=== PATIENT | female | born 1955 | race African-American/Black ===

== ENCOUNTER 2017-12-25 03:21 | Emergency (ER) | payer MEDICAID ==
[~2017-12-25] VITALS: Ht 172.7 cm; Wt 118.0 kg
[~2017-12-25 03:21] MED LIST: KEPP500 PO; PHEN100C4 PO
[2017-12-25 07:31] LABS: BASOPHILS % 0.4 % (0.0-2.0); EOSINOPHILS % 5.6 % (0.0-5.0); HEMATOCRIT. 33.8 % (36.0-48.0); HEMOGLOBIN. 10.9 g/dL (12.0-16.0); LYMPHOCYTES % 30.6 % (20.0-50.0); MEAN CORPUSCULAR HEMOGLOBIN 28.6 pg (28.0-32.0); MEAN CORPUSCULAR VOLUME 88.3 fL (81.0-99.0); MEAN PLATELET VOLUME 9.5 fl (7.4-10.4); MONOCYTES % 7.7 % (2.0-8.0); NEUTROPHILS % 55.7 % (40.0-76.0); PLATELET 128 x1000/uL (130-400); RED BLOOD CELL COUNT 3.83 mill/uL (4.2-5.4); RED CELL DISTRIBUTION WIDTH 12.9 % (11.6-14.6)
[2017-12-25 07:37] LABS: CHLORIDE 103 mEq/L (98-107)
[2017-12-25 08:38] VITALS: BP 132/81
[2017-12-25 08:52] LABS: CLARITY URINE CLEAR (CLEAR); COLOR URINE YELLOW (YELLOW); KETONES URINE NEGATIVE (NEGATIVE); LEUKOCYTE ESTERASE URINE NEGATIVE (NEGATIVE); NITRITE URINE NEGATIVE (NEGATIVE); OCCULT BLOOD URINE NEGATIVE (NEGATIVE); PH URINE 6.5 (4.5-8.0); PROTEIN URINE NEGATIVE (NEGATIVE); SPECIFIC GRAVITY URINE 1.012 (1.005-1.030); UROBILINOGEN URINE 0.2 E.U./dL (0.2-1.0)
== END 2017-12-25 09:49 | disposition left against medical advice (07) ==
LOC: ER 03:21
DX: R42 Dizziness and giddiness (principal); I10 Essential (primary) hypertension; G40.909 Epilepsy, unspecified, not intractable, without status epilepticus; T42.0X5A Adverse effect of hydantoin derivatives, initial encounter; Y92.018 Other place in single-family (private) house as the place of occurrence of the external cause
CPT/HCPCS: 36415; 71045; 80053; 80185; 81003; 85025; 99285; Z7610

== ENCOUNTER 2018-04-04 19:57 | Emergency (ER) | payer MEDICAID, OTHER ==
[~2018-04-04] VITALS: Ht 172.7 cm; Wt 117.0 kg
[2018-04-04] MEDS ORDERED: ALBUTEROL (0.083%) 2.5MG/3ML NEB HHN ONE (21:30)
[2018-04-04 21:58] LABS: BASOPHILS % 0.5 % (0.0-2.0); EOSINOPHILS % 1.3 % (0.0-5.0); HEMATOCRIT. 34.4 % (36.0-48.0); HEMOGLOBIN. 11.1 g/dL (12.0-16.0); LYMPHOCYTES % 20.2 % (20.0-50.0); MEAN CORPUSCULAR VOLUME 87.1 fL (81.0-99.0); MEAN PLATELET VOLUME 10.8 fl (7.4-10.4); MONOCYTES % 9.4 % (2.0-8.0); NEUTROPHILS % 68.6 % (40.0-76.0); PLATELET 120 x1000/uL (130-400); RED BLOOD CELL COUNT 3.95 mill/uL (4.2-5.4); RED CELL DISTRIBUTION WIDTH 12.8 % (11.6-14.6)
[2018-04-04 22:01] LABS: CHLORIDE 107 mEq/L (98-107)
[2018-04-04] MEDS ORDERED: ONDANSETRON HCL 4MG/2ML VIAL IV ONE (22:15)
[2018-04-05 00:04] VITALS: BP 142/95
== END 2018-04-05 02:25 | disposition home or self-care (01) ==
LOC: ER 04-05 02:23
DX: R06.03 Acute respiratory distress (principal); T39.091A Poisoning by salicylates, accidental (unintentional), initial encounter; R56.9 Unspecified convulsions; Y92.89 Other specified places as the place of occurrence of the external cause; Z98.890 Other specified postprocedural states; Z79.899 Other long term (current) drug therapy
CPT/HCPCS: 36415; 71045; 80053; 85025; 93005; 94640; 96374; 99285; J2405; J7611; Z7610

== ENCOUNTER 2018-04-05 16:27 | Inpatient (IN) | payer MEDICAID, OTHER ==
[~2018-04-05] VITALS: Ht 172.7 cm; Wt 116.1 kg
[2018-04-05 19:08] LABS: BASOPHILS % 0.6 % (0.0-2.0); EOSINOPHILS % 1.6 % (0.0-5.0); HEMATOCRIT. 35.6 % (36.0-48.0); HEMOGLOBIN. 11.4 g/dL (12.0-16.0); LYMPHOCYTES % 20.2 % (20.0-50.0); MEAN CORPUSCULAR HEMOGLOBIN 27.8 pg (28.0-32.0); MEAN CORPUSCULAR VOLUME 86.8 fL (81.0-99.0); MEAN PLATELET VOLUME 10.4 fl (7.4-10.4); MONOCYTES % 9.3 % (2.0-8.0); NEUTROPHILS % 68.3 % (40.0-76.0); PLATELET 127 x1000/uL (130-400)
[2018-04-05] MEDS ORDERED: MORPHINE SULFATE 4 MG/ML CPJ (NOT FOR IM USE) IV STA (19:11)
[2018-04-05] MEDS ORDERED: ONDANSETRON HCL 4MG/2ML VIAL IV STA (19:11)
[2018-04-05] MEDS ORDERED: ASPIRIN 81MG TABLET PO STA (19:11)
[2018-04-05 19:12] LABS: CHLORIDE 106 mEq/L (98-107)
[2018-04-05 19:14] LABS: INR 1.1; PARTIAL THROMBOPLASTIN TIME 27.4 sec (23.4-31.0); PROTHROMBIN TIME 10.9 sec (9.4-11.6)
[2018-04-05 20:48] LABS: CLARITY URINE CLEAR (CLEAR); COLOR URINE YELLOW (YELLOW); KETONES URINE NEGATIVE (NEGATIVE); LEUKOCYTE ESTERASE URINE 1+ (NEGATIVE); NITRITE URINE NEGATIVE (NEGATIVE); OCCULT BLOOD URINE TRACE (NEGATIVE); PROTEIN URINE NEGATIVE (NEGATIVE); SPECIFIC GRAVITY URINE 1.022 (1.005-1.030); UROBILINOGEN URINE 0.2 E.U./dL (0.2-1.0)
[2018-04-05] MEDS ORDERED: CEFTRIAXONE 1 G PREMIX 50 ML IV ONE (22:00)
[2018-04-06 01:00] VITALS: BP 148/68
[2018-04-06] MEDS ORDERED: HYDROCODONE/ACETAMINOPHEN 10/325MG TABLET PO PRN (01:00)
[2018-04-06] MEDS ORDERED: GUAIFENESIN 200MG/10ML SUGAR FREE UDC PO PRN ×2 (01:00→01:15)
[2018-04-06] MEDS ORDERED: ONDANSETRON HCL 4MG/2ML VIAL IV PRN ×2 (01:00→01:15)
[2018-04-06] MEDS ORDERED: ENOXAPARIN 40MG/0.4ML SYR SUBCUT SCH ×2 (01:00→09:00)
[2018-04-06] MEDS ORDERED: ACETAMINOPHEN 650MG SUPP PR PRN ×2 (01:00→01:15)
[2018-04-06] MEDS ORDERED: ACETAMINOPHEN 325MG TABLET PO PRN ×2 (01:00→01:15)
[2018-04-06] MEDS ORDERED: DIPHENHYDRAMINE 50MG/ML VIAL IV PRN ×2 (01:00→01:15)
[2018-04-06] MEDS ORDERED: IPRATROPIUM/ALBUTEROL 0.5-3(2.5)MG/3ML NEB INH PRN ×2 (01:00→01:15)
[2018-04-06] MEDS ORDERED: HYDROCODONE/ACETAMINOPHEN 5/325MG TABLET PO PRN ×2 (01:00→01:15)
[2018-04-06] MEDS ORDERED: CLONIDINE 0.1MG TABLET PO PRN ×2 (01:00→01:15)
[2018-04-06] MEDS ORDERED: MAGNESIUM/ALUMINUM HYDROXIDE/SIMETHICONE 30ML UDC PO PRN ×2 (01:00→01:15)
[2018-04-06] MEDS ORDERED: ACETAMINOPHEN 650MG/20.3ML UDC GT PRN ×2 (01:00→01:15)
[2018-04-06] MEDS ORDERED: DOCUSATE SODIUM 100MG CAPSULE PO PRN ×2 (01:00→01:15)
[2018-04-06] MEDS ORDERED: NA PHOS,M-B/NA PHOS,DI-BA ENEMA 118ML PR PRN ×2 (01:00→01:15)
[2018-04-06] MEDS ORDERED: LORAZEPAM 2MG/ML CPJ IV PRN (01:45)
[2018-04-06 04:00] VITALS: BP 128/70
[2018-04-06] MEDS ORDERED: LEVETIRACETAM 500 MG in SODIUM CHLORIDE 0.9% 100 ML IV SCH (04:00)
[2018-04-06] MEDS ORDERED: PHENYTOIN SODIUM 100MG/2ML VIAL IV SCH (06:00)
[2018-04-06] MEDS ORDERED: SODIUM CHLORIDE 0.9% INJ 3ML FLUSH IVF SCH ×2 (06:00)
[2018-04-06 08:00] VITALS: BP 118/72
[2018-04-06 09:39] LABS: CREATINE KINASE 318 IU/L (26-192)
[2018-04-06 09:40] LABS: CREATINE KINASE MB FRACTION 2.4 ng/mL (0.5-3.6)
[2018-04-06 10:03] LABS: CHLORIDE 106 mEq/L (98-107)
[2018-04-06 10:06] LABS: BASOPHILS % 0.3 % (0.0-2.0); EOSINOPHILS % 3.7 % (0.0-5.0); HEMOGLOBIN. 10.6 g/dL (12.0-16.0); LYMPHOCYTES % 34.1 % (20.0-50.0); MEAN CORPUSCULAR HEMOGLOBIN 28.1 pg (28.0-32.0); MEAN CORPUSCULAR VOLUME 87.3 fL (81.0-99.0); MEAN PLATELET VOLUME 11.1 fl (7.4-10.4); MONOCYTES % 10.1 % (2.0-8.0); NEUTROPHILS % 51.8 % (40.0-76.0); PLATELET 115 x1000/uL (130-400); RED BLOOD CELL COUNT 3.77 mill/uL (4.2-5.4)
[2018-04-06] MEDS ORDERED: CEFTRIAXONE 1 G PREMIX 50 ML IV SCH (10:30)
[2018-04-06 12:00] VITALS: BP 113/76
[2018-04-06 14:14] LABS: CLARITY URINE CLEAR (CLEAR); COLOR URINE YELLOW (YELLOW); KETONES URINE NEGATIVE (NEGATIVE); LEUKOCYTE ESTERASE URINE 2+ (NEGATIVE); NITRITE URINE POSITIVE (NEGATIVE); OCCULT BLOOD URINE NEGATIVE (NEGATIVE); PH URINE 6.5 (4.5-8.0); PROTEIN URINE TRACE (NEGATIVE); SPECIFIC GRAVITY URINE 1.021 (1.005-1.030); UROBILINOGEN URINE 0.2 E.U./dL (0.2-1.0)
[2018-04-06 15:01] LABS: *AMPHETAMINES SCREEN URINE NEGATIVE (NEGATIVE); CANNABINOID URINE SCREEN NEGATIVE (NEGATIVE); METHADONE URINE SCREEN NEGATIVE (NEGATIVE); OPIATES URINE SCREEN PRESUMTIVE POSITIVE (NEGATIVE); PHENCYCLIDINE URINE SCREEN NEGATIVE (NEGATIVE)
[2018-04-06 15:02] LABS: *BENZODIAZEPINES SCREEN URINE NEGATIVE (NEGATIVE); *COCAINE SCREEN URINE NEGATIVE (NEGATIVE)
[2018-04-06 15:06] LABS: *BARBITURATES SCREEN URINE NEGATIVE (NEGATIVE)
[2018-04-07] MEDS ORDERED: HYDR25TA MT (03:12)
[2018-04-07] MEDS ORDERED: ASPIRIN 325MG EC TABLET PO SCH (09:00)
[2018-04-22] MEDS ORDERED: ASPI-1158 PO (13:50)
[2018-04-22] MEDS ORDERED: AMLO5TAB88 PO (13:50)
== END 2018-04-06 12:50 | disposition left against medical advice (07) | DRG 243 ==
LOC: ER 16:27 → 7WST 22:27 → ENRESERV 22:39 → 7WST 04-06 01:49
PROVIDERS: ADMIT Family Medicine; ATTEND Family Medicine
DX: K21.9 Gastro-esophageal reflux disease without esophagitis (principal); D69.6 Thrombocytopenia, unspecified; D32.9 Benign neoplasm of meninges, unspecified; E66.9 Obesity, unspecified; G40.909 Epilepsy, unspecified, not intractable, without status epilepticus; D64.9 Anemia, unspecified; R73.9 Hyperglycemia, unspecified; R07.9 Chest pain, unspecified; M79.602 Pain in left arm; Z53.21 Procedure and treatment not carried out due to patient leaving prior to being seen by health care provider; Z85.3 Personal history of malignant neoplasm of breast; Z79.899 Other long term (current) drug therapy; Z68.38 Body mass index [BMI] 38.0-38.9, adult
CPT/HCPCS: 36415; 70450; 71045; 80053; 80305; 81003; 82550; 82553; 83690; 84484; 85025; 85610; 85730; 87086; 93005; 96365; 96366; 96375; 99285; J0696; J1165; J1650; J1953; J2060; J2270; J2405; J7050

== ENCOUNTER 2018-04-06 21:00 | Inpatient (IN) | payer MEDICAID ==
[~2018-04-06] VITALS: Ht 165.1 cm; Wt 120.0 kg
[2018-04-06] MEDS ORDERED: ASPIRIN 81MG TABLET PO ONE (22:45)
[2018-04-06] MEDS ORDERED: NITROGLYCERIN OINT 1GM/INCH UDPKT TD ONE (22:45)
[2018-04-06 22:57] LABS: BASOPHILS % 1.1 % (0.0-2.0); EOSINOPHILS % 2.4 % (0.0-5.0); HEMATOCRIT. 34.2 % (36.0-48.0); LYMPHOCYTES % 25.4 % (20.0-50.0); MEAN CORPUSCULAR HEMOGLOBIN 27.9 pg (28.0-32.0); MEAN CORPUSCULAR VOLUME 87.1 fL (81.0-99.0); MONOCYTES % 8.1 % (2.0-8.0); PLATELET 146 x1000/uL (130-400); RED BLOOD CELL COUNT 3.93 mill/uL (4.2-5.4); RED CELL DISTRIBUTION WIDTH 12.8 % (11.6-14.6)
[2018-04-06 23:03] LABS: CHLORIDE 106 mEq/L (98-107)
[2018-04-06 23:07] LABS: ETHANOL BLOOD < 10 mg/dL
[2018-04-06 23:27] LABS: PROTHROMBIN TIME 10.9 sec (9.4-11.6)
[2018-04-07 00:41] LABS: CLARITY URINE CLEAR (CLEAR); COLOR URINE YELLOW (YELLOW); KETONES URINE TRACE (NEGATIVE); LEUKOCYTE ESTERASE URINE TRACE (NEGATIVE); NITRITE URINE NEGATIVE (NEGATIVE); OCCULT BLOOD URINE NEGATIVE (NEGATIVE); PH URINE 5.5 (4.5-8.0); PROTEIN URINE NEGATIVE (NEGATIVE); SPECIFIC GRAVITY URINE 1.026 (1.005-1.030); UROBILINOGEN URINE 0.2 E.U./dL (0.2-1.0)
[2018-04-07 01:17] LABS: *AMPHETAMINES SCREEN URINE NEGATIVE (NEGATIVE); *BARBITURATES SCREEN URINE NEGATIVE (NEGATIVE); *BENZODIAZEPINES SCREEN URINE NEGATIVE (NEGATIVE); *COCAINE SCREEN URINE NEGATIVE (NEGATIVE); METHADONE URINE SCREEN NEGATIVE (NEGATIVE); OPIATES URINE SCREEN PRESUMTIVE POSITIVE (NEGATIVE)
[2018-04-07 01:19] LABS: CANNABINOID URINE SCREEN NEGATIVE (NEGATIVE); PHENCYCLIDINE URINE SCREEN NEGATIVE (NEGATIVE)
[2018-04-07 02:20] VITALS: BP 153/76
[2018-04-07] MEDS ORDERED: HYDR25TA MT (03:12)
[2018-04-07] MEDS ORDERED: CLONIDINE 0.1MG TABLET PO PRN (03:30)
[2018-04-07] MEDS: HYDROCODONE/ACETAMINOPHEN 5/325MG TABLET PO PRN ×3 (03:38→12:51)
[2018-04-07] MEDS: DIPHENHYDRAMINE 50MG CAPSULE PO PRN (03:38)
[2018-04-07 03:40] VITALS: BP 153/73
[2018-04-07 08:00] VITALS: BP 100/53
[2018-04-07] MEDS: HYDROCHLOROTHIAZIDE 25MG TABLET PO SCH (08:50)
[2018-04-07] MEDS: PHENYTOIN SODIUM EXTENDED 100MG CAPSULE PO SCH (08:50)
[2018-04-07] MEDS: LEVETIRACETAM 500MG/5ML CUP PO SCH (08:51)
[2018-04-07 12:00] VITALS: BP 102/62
[2018-04-07 16:00] VITALS: BP 122/64
[2018-04-07] MEDS ORDERED: KETOROLAC 30MG/ML VIAL IV PRN (17:00)
[2018-04-07 17:05] LABS: BASOPHILS % 0.6 % (0.0-2.0); EOSINOPHILS % 3.7 % (0.0-5.0); HEMATOCRIT. 33.7 % (36.0-48.0); HEMOGLOBIN. 10.8 g/dL (12.0-16.0); LYMPHOCYTES % 32.6 % (20.0-50.0); MEAN CORPUSCULAR HEMOGLOBIN 27.9 pg (28.0-32.0); MEAN CORPUSCULAR VOLUME 86.6 fL (81.0-99.0); MEAN PLATELET VOLUME 10.4 fl (7.4-10.4); MONOCYTES % 9.7 % (2.0-8.0); NEUTROPHILS % 53.4 % (40.0-76.0); PLATELET 138 x1000/uL (130-400); RED BLOOD CELL COUNT 3.89 mill/uL (4.2-5.4)
[2018-04-07] MEDS: ASPIRIN 81MG EC TABLET PO SCH (17:29)
[2018-04-07] MEDS: HYDROCODONE/ACETAMINOPHEN 10/325MG TABLET PO PRN (17:29)
[2018-04-07 20:00] VITALS: BP 112/63
[2018-04-08] VITALS: BP 118/68
[2018-04-08 04:00] VITALS: BP 121/67
[2018-04-08] MEDS: HYDROCODONE/ACETAMINOPHEN 10/325MG TABLET PO PRN ×2 (07:00→20:21)
[2018-04-08 08:00] VITALS: BP 122/89
[2018-04-08] MEDS: PHENYTOIN SODIUM EXTENDED 100MG CAPSULE PO SCH (08:54)
[2018-04-08] MEDS: HYDROCHLOROTHIAZIDE 25MG TABLET PO SCH (08:54)
[2018-04-08] MEDS: ASPIRIN 81MG EC TABLET PO SCH (08:54)
[2018-04-08] MEDS: LEVETIRACETAM 500MG/5ML CUP PO SCH (08:54)
[2018-04-08 09:02] LABS: BASOPHILS % 0.6 % (0.0-2.0); EOSINOPHILS % 5.2 % (0.0-5.0); HEMOGLOBIN. 11.3 g/dL (12.0-16.0); LYMPHOCYTES % 27.8 % (20.0-50.0); MEAN CORPUSCULAR HEMOGLOBIN 27.9 pg (28.0-32.0); MEAN CORPUSCULAR VOLUME 86.5 fL (81.0-99.0); MEAN PLATELET VOLUME 10.5 fl (7.4-10.4); MONOCYTES % 8.4 % (2.0-8.0); PLATELET 151 x1000/uL (130-400); RED BLOOD CELL COUNT 4.04 mill/uL (4.2-5.4); RED CELL DISTRIBUTION WIDTH 12.9 % (11.6-14.6)
[2018-04-08 09:18] LABS: CHLORIDE 103 mEq/L (98-107)
[2018-04-08 12:00] VITALS: BP 105/65
[2018-04-08 16:00] VITALS: BP 156/88
[2018-04-08] MEDS ORDERED: NA PHOS,M-B/NA PHOS,DI-BA ENEMA 118ML PR SCH (19:00)
[2018-04-08 20:00] VITALS: BP 140/60
[2018-04-08] MEDS: DIPHENHYDRAMINE 50MG CAPSULE PO PRN (23:30)
[2018-04-09] VITALS: BP 135/85
[2018-04-09 08:00] VITALS: BP 127/62
[2018-04-09] MEDS: PHENYTOIN SODIUM EXTENDED 100MG CAPSULE PO SCH (09:32)
[2018-04-09] MEDS: LEVETIRACETAM 500MG/5ML CUP PO SCH (09:32)
[2018-04-09] MEDS: HYDROCHLOROTHIAZIDE 25MG TABLET PO SCH (09:33)
[2018-04-09] MEDS: ASPIRIN 81MG EC TABLET PO SCH (09:34)
[2018-04-09 16:00] VITALS: BP 129/77
[2018-04-09 19:03] VITALS: BP 129/79
[2018-04-09 20:00] VITALS: BP 124/63
== END 2018-04-09 20:02 | disposition home or self-care (01) | DRG 351 ==
LOC: ER 21:46 → EDBEDREQ 04-07 00:42 → ENRESERV 04-07 00:48 → 5WST 04-07 00:50
PROVIDERS: ADMIT Internal Medicine; ATTEND Internal Medicine
DX: M79.602 Pain in left arm (principal); I11.9 Hypertensive heart disease without heart failure; C50.912 Malignant neoplasm of unspecified site of left female breast; Z68.41 Body mass index [BMI] 40.0-44.9, adult; R07.9 Chest pain, unspecified; M48.02 Spinal stenosis, cervical region; R20.2 Paresthesia of skin; G40.909 Epilepsy, unspecified, not intractable, without status epilepticus; G43.909 Migraine, unspecified, not intractable, without status migrainosus; I49.3 Ventricular premature depolarization; D32.9 Benign neoplasm of meninges, unspecified; E66.9 Obesity, unspecified; F17.210 Nicotine dependence, cigarettes, uncomplicated; J44.9 Chronic obstructive pulmonary disease, unspecified; M47.812 Spondylosis without myelopathy or radiculopathy, cervical region; Z80.1 Family history of malignant neoplasm of trachea, bronchus and lung; Z86.73 Personal history of transient ischemic attack (TIA), and cerebral infarction without residual deficits; Z91.19 Patient's noncompliance with other medical treatment and regimen; N39.0 Urinary tract infection, site not specified
CPT/HCPCS: 36415; 70551; 71045; 72050; 72141; 73030; 80048; 80053; 80305; 81003; 83690; 83880; 84484; 85025; 85610; 87086; 93005; G0482; J1885; Q0163

== ENCOUNTER 2018-10-03 15:46 | Emergency (ER) | payer MEDICAID ==
[~2018-10-03] VITALS: Ht 172.7 cm; Wt 118.0 kg
[~2018-10-03 15:46] MED LIST changes: +AMLO5TAB88 PO; +ASPI-1158 PO
[2018-10-03 15:56] VITALS: BP 163/80
== END 2018-10-03 17:45 | disposition left against medical advice (07) ==
LOC: ER 15:46
DX: R10.9 Unspecified abdominal pain (principal); Z53.21 Procedure and treatment not carried out due to patient leaving prior to being seen by health care provider

== ENCOUNTER 2018-10-04 22:29 | Emergency (ER) | payer MEDICAID ==
[~2018-10-04] VITALS: Ht 167.6 cm; Wt 78.0 kg
[2018-10-04] MEDS ORDERED: KETOROLAC 60MG/2ML VIAL IM ONE (23:15)
[2018-10-05 00:01] LABS: BASOPHILS % 0.8 % (0.0-2.0); EOSINOPHILS % 2.3 % (0.0-5.0); HEMATOCRIT. 34.9 % (36.0-48.0); HEMOGLOBIN. 11.1 g/dL (12.0-16.0); LYMPHOCYTES % 22.9 % (20.0-50.0); MEAN CORPUSCULAR HEMOGLOBIN 27.5 pg (28.0-32.0); MEAN CORPUSCULAR VOLUME 86.6 fL (81.0-99.0); MEAN PLATELET VOLUME 10.7 fl (7.4-10.4); MONOCYTES % 9.9 % (2.0-8.0); NEUTROPHILS % 64.1 % (40.0-76.0); PLATELET 110 x1000/uL (130-400); RED BLOOD CELL COUNT 4.03 mill/uL (4.2-5.4); RED CELL DISTRIBUTION WIDTH 12.9 % (11.6-14.6)
[2018-10-05 00:07] LABS: CHLORIDE 105 mEq/L (98-107)
[2018-10-05 01:40] VITALS: BP 122/65
[2018-10-05] MEDS ORDERED: DILT240C49 PO (18:16)
[2018-10-05] MEDS ORDERED: LISI10TA5 PO (18:16)
[2018-10-05] MEDS ORDERED: DIU2 PO (18:16)
[2018-10-05] MEDS ORDERED: FERR325T6 PO (18:16)
[2018-10-05] MEDS ORDERED: TRAZ-213 PO (18:16)
[2018-10-05] MEDS ORDERED: BACL20TA PO (18:16)
[2018-10-05] MEDS ORDERED: LORA10TA7 PO (18:16)
[2018-10-05] MEDS ORDERED: FLUT15.88 BOTHNSTRLS (18:16)
== END 2018-10-05 01:40 | disposition home or self-care (01) ==
LOC: ER 23:21
DX: R13.10 Dysphagia, unspecified (principal); D64.9 Anemia, unspecified; I10 Essential (primary) hypertension; G40.909 Epilepsy, unspecified, not intractable, without status epilepticus; Z90.10 Acquired absence of unspecified breast and nipple; Z79.899 Other long term (current) drug therapy
CPT/HCPCS: 36415; 70490; 71045; 80053; 85025; 87070; 87430; 96372; 99284; J1885

== ENCOUNTER 2018-10-05 10:53 | Inpatient (IN) | payer MEDICAID ==
[~2018-10-05] VITALS: Ht 167.6 cm; Wt 117.9 kg
[2018-10-05] MEDS ORDERED: METHYLPREDNISOLONE SOD SUCC 125 MG/2 ML VIAL IV STA (11:19)
[2018-10-05] MEDS ORDERED: ALBUTEROL (0.083%) 2.5MG/3ML NEB HHN STA (11:19)
[2018-10-05] MEDS ORDERED: SODIUM CHLORIDE 0.9% 1000ML BAG (SEPSIS BOLUS) IV ONE (11:30)
[2018-10-05] MEDS ORDERED: LEVETIRACETAM 500MG PREMIX 100 ML IV ONE (11:30)
[2018-10-05 12:17] LABS: BASOPHILS % 0.4 % (0.0-2.0); EOSINOPHILS % 2.3 % (0.0-5.0); HEMATOCRIT. 35.2 % (36.0-48.0); HEMOGLOBIN. 11.4 g/dL (12.0-16.0); LYMPHOCYTES % 28.7 % (20.0-50.0); MEAN CORPUSCULAR VOLUME 86.4 fL (81.0-99.0); MEAN PLATELET VOLUME 10.1 fl (7.4-10.4); NEUTROPHILS % 60.6 % (40.0-76.0); PLATELET 114 x1000/uL (130-400); RED BLOOD CELL COUNT 4.07 mill/uL (4.2-5.4); RED CELL DISTRIBUTION WIDTH 12.9 % (11.6-14.6)
[2018-10-05 12:21] LABS: CHLORIDE 103 mEq/L (98-107)
[2018-10-05 12:23] LABS: PARTIAL THROMBOPLASTIN TIME 28.1 sec (23.4-31.0); PROTHROMBIN TIME 10.5 sec (9.1-11.1)
[2018-10-05] MEDS ORDERED: LEVOFLOXACIN 500MG PREMIX 100 ML IV ONE (12:45)
[2018-10-05] MEDS ORDERED: PHENYTOIN SODIUM EXTENDED 100MG CAPSULE PO ONE (13:15)
[2018-10-05 14:50] LABS: CLARITY URINE CLEAR (CLEAR); COLOR URINE YELLOW (YELLOW); KETONES URINE NEGATIVE (NEGATIVE); LEUKOCYTE ESTERASE URINE NEGATIVE (NEGATIVE); NITRITE URINE NEGATIVE (NEGATIVE); OCCULT BLOOD URINE NEGATIVE (NEGATIVE); PROTEIN URINE NEGATIVE (NEGATIVE); SPECIFIC GRAVITY URINE 1.007 (1.005-1.030); UROBILINOGEN URINE 0.2 E.U./dL (0.2-1.0)
[2018-10-05 17:00] VITALS: BP 150/99
[2018-10-05] MEDS ORDERED: CLONIDINE 0.1MG TABLET PO PRN (17:45)
[2018-10-05] MEDS ORDERED: HYDROCODONE/ACETAMINOPHEN 5/325MG TABLET PO PRN (17:45)
[2018-10-05] MEDS ORDERED: DIPHENHYDRAMINE 50MG CAPSULE PO PRN (17:45)
[2018-10-05 17:56] VITALS: BP 150/99
[2018-10-05] MEDS ORDERED: LORA10TA7 PO (18:16)
[2018-10-05] MEDS ORDERED: FERR325T6 PO (18:16)
[2018-10-05] MEDS ORDERED: LISI10TA5 PO (18:16)
[2018-10-05] MEDS ORDERED: DILT240C49 PO (18:16)
[2018-10-05] MEDS ORDERED: FLUT15.88 BOTHNSTRLS (18:16)
[2018-10-05] MEDS ORDERED: TRAZ-213 PO (18:16)
[2018-10-05] MEDS ORDERED: BACL20TA PO (18:16)
[2018-10-05] MEDS ORDERED: DIU2 PO (18:16)
[2018-10-05] MEDS: ACETAMINOPHEN 325MG TABLET PO PRN (18:37)
[2018-10-05] MEDS: METHYLPREDNISOLONE SOD SUCC 40 MG/ML VIAL IV SCH (19:33)
[2018-10-05 20:00] VITALS: BP 153/79
[2018-10-06] VITALS: BP 144/61
[2018-10-06] MEDS: METHYLPREDNISOLONE SOD SUCC 40 MG/ML VIAL IV SCH ×2 (03:17→12:05)
[2018-10-06 04:00] VITALS: BP 147/66
[2018-10-06 07:42] VITALS: BP 146/80
[2018-10-06] MEDS ORDERED: PHENYTOIN SODIUM EXTENDED 100MG CAPSULE PO SCH (09:00)
[2018-10-06] MEDS: LORATADINE 10MG TABLET PO SCH (09:27)
[2018-10-06] MEDS: FAMOTIDINE 20MG TABLET PO SCH (09:27)
[2018-10-06] MEDS: LEVETIRACETAM 500MG TABLET PO SCH (09:27)
[2018-10-06] MEDS ORDERED: IPRATROPIUM/ALBUTEROL 0.5-3(2.5)MG/3ML NEB HHN PRN (09:30)
[2018-10-06 12:00] VITALS: BP 129/63
[2018-10-06] MEDS: ACETAMINOPHEN 325MG TABLET PO PRN (12:13)
[2018-10-06] MEDS ORDERED: THROAT LOZENGES-BENZOCAINE/MENTH/CETYLPYRD CL LOZENGES MM PRN (14:15)
[2018-10-06 16:00] VITALS: BP 148/86
[2018-10-06 20:00] VITALS: BP 145/76
[2018-10-06] MEDS ORDERED: ZOLPIDEM TARTRATE 5MG TABLET PO PRN (21:00)
[2018-10-07] VITALS: BP 140/78
[2018-10-07 04:00] VITALS: BP 159/82
[2018-10-07 05:59] LABS: BASOPHILS % 0.8 % (0.0-2.0); EOSINOPHILS % 0.2 % (0.0-5.0); HEMATOCRIT. 37.2 % (36.0-48.0); LYMPHOCYTES % 22.7 % (20.0-50.0); MEAN CORPUSCULAR HEMOGLOBIN 27.8 pg (28.0-32.0); MEAN CORPUSCULAR VOLUME 86.1 fL (81.0-99.0); MEAN PLATELET VOLUME 11.4 fl (7.4-10.4); MONOCYTES % 4.5 % (2.0-8.0); NEUTROPHILS % 71.8 % (40.0-76.0); PLATELET 108 x1000/uL (130-400); RED BLOOD CELL COUNT 4.32 mill/uL (4.2-5.4); RED CELL DISTRIBUTION WIDTH 13.1 % (11.6-14.6)
[2018-10-07 08:00] VITALS: BP 117/78
[2018-10-07] MEDS ORDERED: PHENYTOIN SODIUM EXTENDED 100MG CAPSULE PO SCH ×2 (09:00→11:15)
[2018-10-07] MEDS: LEVETIRACETAM 500MG TABLET PO SCH (09:52)
[2018-10-07] MEDS: FAMOTIDINE 20MG TABLET PO SCH (09:52)
[2018-10-07] MEDS: LORATADINE 10MG TABLET PO SCH (10:00)
[2018-10-07] MEDS ORDERED: PHEN100C4 MT ×2 (11:17→11:20)
[2018-10-07] MEDS ORDERED: BENZ-16 MT (11:17)
[2018-10-07 11:57] VITALS: BP 124/78
== END 2018-10-07 12:30 | disposition home or self-care (01) | DRG 145 ==
LOC: EDBEDREQ 12:41 → EDBEDREQTM 12:41 → ER 13:25 → 8WST 13:26 → ENRESERV 16:27 → 8WST 10-06 10:14
PROVIDERS: ADMIT Internal Medicine; ATTEND Internal Medicine
DX: J20.9 Acute bronchitis, unspecified (principal); C50.919 Malignant neoplasm of unspecified site of unspecified female breast; R13.10 Dysphagia, unspecified; Z68.41 Body mass index [BMI] 40.0-44.9, adult; D64.9 Anemia, unspecified; B37.9 Candidiasis, unspecified; J06.9 Acute upper respiratory infection, unspecified; E66.9 Obesity, unspecified; I10 Essential (primary) hypertension; G40.909 Epilepsy, unspecified, not intractable, without status epilepticus; Z85.3 Personal history of malignant neoplasm of breast; Z91.19 Patient's noncompliance with other medical treatment and regimen; Z90.12 Acquired absence of left breast and nipple; Z79.899 Other long term (current) drug therapy; Z79.82 Long term (current) use of aspirin
CPT/HCPCS: 36415; 71045; 80048; 80185; 83036; 83605; 83735; 83880; 84145; 84484; 87070; 87430; 87804; 93005; 93970; 94640; 96365; 96366; 96375; 99291; C1893; J1953; J1956; J2920; J2930; J7030; J7611

== ENCOUNTER 2018-10-25 20:41 | Emergency (ER) | payer MEDICAID ==
[~2018-10-25] VITALS: Ht 172.7 cm; Wt 118.0 kg
[~2018-10-25 20:41] MED LIST changes: +BACL20TA PO; +BENZ-16 MT; +DILT240C49 PO; +DIU2 PO; +FERR325T6 PO; +FLUT15.88 BOTHNSTRLS; +LISI10TA5 PO; +LORA10TA7 PO; +PHEN100C4 MT; -PHEN100C4 PO; +TRAZ-213 PO
[2018-10-25] MEDS ORDERED: LEVETIRACETAM 500MG TABLET PO ONE (23:00)
[2018-10-25] MEDS ORDERED: PHENYTOIN SODIUM EXTENDED 100MG CAPSULE PO ONE (23:00)
[2018-10-26 00:37] LABS: BASOPHILS % 0.6 % (0.0-2.0); EOSINOPHILS % 2.7 % (0.0-5.0); HEMATOCRIT. 36.4 % (36.0-48.0); HEMOGLOBIN. 11.6 g/dL (12.0-16.0); LYMPHOCYTES % 22.1 % (20.0-50.0); MEAN CORPUSCULAR HEMOGLOBIN 27.6 pg (28.0-32.0); MEAN CORPUSCULAR VOLUME 86.4 fL (81.0-99.0); MEAN PLATELET VOLUME 10.4 fl (7.4-10.4); MONOCYTES % 7.2 % (2.0-8.0); NEUTROPHILS % 67.4 % (40.0-76.0); PLATELET 103 x1000/uL (130-400); RED BLOOD CELL COUNT 4.21 mill/uL (4.2-5.4); RED CELL DISTRIBUTION WIDTH 13.5 % (11.6-14.6)
[2018-10-26 00:40] LABS: CLARITY URINE CLEAR (CLEAR); COLOR URINE YELLOW (YELLOW); KETONES URINE TRACE (NEGATIVE); LEUKOCYTE ESTERASE URINE NEGATIVE (NEGATIVE); NITRITE URINE NEGATIVE (NEGATIVE); OCCULT BLOOD URINE NEGATIVE (NEGATIVE); PH URINE 6.5 (4.5-8.0); PROTEIN URINE TRACE (NEGATIVE); UROBILINOGEN URINE 0.2 E.U./dL (0.2-1.0)
[2018-10-26 00:44] LABS: CHLORIDE 104 mEq/L (98-107)
[2018-10-26 00:45] LABS: INR 1.1; PROTHROMBIN TIME 10.6 sec (9.1-11.1)
[2018-10-26 01:42] VITALS: BP 146/64
== END 2018-10-26 01:53 | disposition home or self-care (01) ==
LOC: ER 20:41
DX: R56.9 Unspecified convulsions (principal); E11.9 Type 2 diabetes mellitus without complications; I10 Essential (primary) hypertension; Z90.10 Acquired absence of unspecified breast and nipple; Z79.82 Long term (current) use of aspirin; Z79.899 Other long term (current) drug therapy
CPT/HCPCS: 36415; 99283

== ENCOUNTER 2019-02-04 23:15 | Emergency (ER) | payer MEDICAID ==
[~2019-02-04] VITALS: Ht 170.2 cm; Wt 100.0 kg
[2019-02-05] MEDS ORDERED: LEVETIRACETAM 500MG PREMIX 100 ML IV ONE (00:45)
[2019-02-05 03:38] VITALS: BP 136/77
== END 2019-02-05 03:52 | disposition home or self-care (01) ==
LOC: ER 23:15
DX: G40.909 Epilepsy, unspecified, not intractable, without status epilepticus (principal); E11.9 Type 2 diabetes mellitus without complications; I10 Essential (primary) hypertension; Z79.899 Other long term (current) drug therapy; Z79.82 Long term (current) use of aspirin
CPT/HCPCS: 96365; 99283; J1953

== ENCOUNTER 2019-02-10 08:46 | Emergency (ER) | payer MEDICAID ==
[~2019-02-10] VITALS: Ht 172.7 cm; Wt 125.0 kg
[2019-02-10 08:55] VITALS: BP 130/52
== END 2019-02-10 09:31 | disposition left against medical advice (07) ==
LOC: ER 08:46
DX: R56.9 Unspecified convulsions (principal); E11.9 Type 2 diabetes mellitus without complications; I10 Essential (primary) hypertension; Z79.82 Long term (current) use of aspirin; Z79.899 Other long term (current) drug therapy
CPT/HCPCS: 99283